=== PATIENT | female | born 1940 | race Caucasian/White ===

== ENCOUNTER 2017-03-11 07:23 | Outpatient (CLI) | payer MEDICARE | END 2017-03-11 07:24 | disposition home or self-care (01) | LOC: BICMAMMO 07:23 | PROVIDERS: ATTEND Obstetrics & Gynecology | DX: Z12.31 Encounter for screening mammogram for malignant neoplasm of breast (principal) | CPT/HCPCS: 77063; G0202; 77067 ==

== ENCOUNTER 2017-04-08 10:59 | Outpatient (CLI) | payer MEDICARE ==
--- NOTE | 2017-04-08 14:27 | CT ---
CONTRAST ENHANCED CTA BRAIN: HISTORY: Anterior communicating artery aneurysm followup. FINDINGS: Contrast-enhanced CTA intracranial was performed Two-D and 3D reconstructed images performed on an [employer] 3D work station. CTA images demonstrate a 5.3 x 5.6 x 5.5 mm anterior communicating artery aneurysm which points anter iorly. This, when compared to previous comparison MRI from 09/29/16, has not significantly changed. No other intracranial vascular abnormality is seen. Some deep white matter ischemic changes are seen . IMPRESSION: Stable anterior communicating artery aneurysm. No other significant intracranial abnormalities or va scular pathology is seen. Some atherosclerotic plaque is present in the cavernous and supraclinoid p ortions of the internal carotid arteries bilaterally. No significant flow-limiting lesion seen. POS: [facility]
[2017-04-08] MEDS ORDERED: Iopamidol 370 76% 100 ML VIAL ONE (15:42)
== END 2017-04-08 11:00 | disposition home or self-care (01) ==
LOC: TBSIIMAG 10:59 → CT 11:00
PROVIDERS: ATTEND Neurological Surgery
DX: Z86.73 Personal history of transient ischemic attack (TIA), and cerebral infarction without residual deficits (principal); I67.1 Cerebral aneurysm, nonruptured; I67.2 Cerebral atherosclerosis
CPT/HCPCS: 70496